=== PATIENT | male | born 1950 | race Caucasian/White ===

== ENCOUNTER 2018-10-13 13:13 | Observation (INO) ==
[2018-10-13] MEDS ORDERED: IOPAMIDOL 100 ML BOTTLE IV ONE (13:14)
[2018-10-13] MEDS ORDERED: ONDANSETRON 4 MG/2 ML VIAL IV ONE (13:47)
[2018-10-13] MEDS ORDERED: 0.9 % SODIUM CHLORIDE 1,000 ML IV ONE (13:47)
[2018-10-13] MEDS ORDERED: HYDROmorphone 2 MG/ML VIAL IM ONE (13:47)
[2018-10-13] MEDS ORDERED: HYDROmorphone 2 MG/ML VIAL IV SCH (14:00)
[2018-10-13] MEDS ORDERED: PROMETHAZINE 25 MG/ML VIAL IV ONE (14:02)
[2018-10-13 14:25] LABS: Basophils # (Auto) 0 K/mcL (0.0-0.3); Basophils % (Auto) 0.4 % (0.0-2.0); Eosinophils # (Auto) 0.3 K/mcL (0.0-0.7); Eosinophils % (Auto) 3.3 % (0.0-7.0); Granulocytes % (Auto) 71.1 % (38.0-78.0); Lymphocytes # (Auto) 1.5 K/mcL (1.5-4.8); Lymphocytes % (Auto) 15.8 % (15.5-49.0); Mean Cell Volume 93.6 fL (80.0-100.0); Mean Corpuscular HGB Conc 33.3 g/dL (31.0-36.0); Mean Corpuscular Hemoglobin 31.2 pg (26.0-34.0); Monocytes # (Auto) 0.9 K/mcL (0.1-0.9); Monocytes % (Auto) 9.4 % (1.0-12.0); Platelet Count 191 K/mcL (140-440); RBC 5.41 M/mcL (4.50-5.90); Red Cell Distribution Width 12.8 % (11.5-14.5)
[2018-10-13 14:51] LABS: ALT/SGPT 31 U/l (0-40); Albumin 4.3 gm/dL (3.2-5.2); Albumin/Globulin Ratio 1.4 (1.0-2.3); Alkaline Phosphatase 87 U/L (39-117); Blood Urea Nitrogen 9 mg/dl (8-23)
--- NOTE | 2018-10-13 15:34 | Ultrasound Report ---
CLINICAL INFORMATION: Abdominal pain and back pain TECHNIQUE: Grayscale and color flow Doppler spectral imaging COMPARISON: None. FINDINGS: Negative gallbladder. No cholelithiasis. No gallbladder wall thickening. No pericholecystic fluid. No dilated bile ducts. Common bile duct measures 5 mm. Liver appears enlarged. Liver measures 20 cm maximally. Liver is echogenic suggesting hepatic steatosis. No focal mass. Liver contour is smooth. No ascites. Visualized portions of the pancreas are echogenic. No discrete mass. No peripancreatic abnormality. Right kidney measures 11.7 x 4.4 x 4.6 cm. No solid or cystic mass. No hydronephrosis. Spleen is not evaluated. Normal hepatopedal portal venous flow. IMPRESSION: 1. Probable hepatic steatosis. No focal intrahepatic abnormality 2. Negative gallbladder Interpreted and Authenticated by: Juan C Ray 10/13/18
--- NOTE | 2018-10-13 15:40 | Emergency Department Note ---
Abdominal Pain HPI - General Chief Complaint: Abdominal Pain Stated Complaint: back pain, abdominal pain Time Seen by Provider: 10/13/18 13:41 Source: patient Mode of arrival: ambulatory Limitations: no limitations - History of Present Illness HPI Narrative: 68-year-old male presents with diffuse abdominal pain and back pain. Describes it as a tight band wrapped around his upper abdomen and back. Onset this morning. Has progressively gotten worse throughout the day and especially worse after eating lunch, states he just had a sandwich for lunch. Positive nausea. No vomiting or diarrhea. No history of anything like this previously. Denies chest pain or shortness of breath. No fever or chills. No cough or cold symptoms. Patient states pain is unbearable so he decided to come in. Improves with: nothing Worsens with: eating Associated symptoms: Reports: nausea. Denies: vomiting, diarrhea - Related Data Home Medications Medication Instructions Recorded Confirmed Fluticasone/Salmeterol [Advair 1 puff INH ONCE 10/13/18 10/13/18 100-50 Diskus] Simvastatin [Zocor] 80 mg PO HS 10/13/18 10/13/18 Allergies Allergy/AdvReac Type Severity Reaction Status Date / Time No Known Drug Allergies Allergy Unverified 10/13/18 13:24 Review of Systems All systems ED: reviewed and negative except as stated. Abdominal Pain PMH - Past Medical History Medical history: Reports: hyperlipidemia, other (Chronic bronchitis which he was started on Advair for as needed but rarely uses it) Surgical history ED: Reports: no surgical history (Denies any surgeries ever) - Social History Smoking status: Never smoker Alcohol use: Reports: Rarely Drug use: Reports: none Physical Exam Limitations: no limitations General appearance: alert, in no apparent distress, other (I initially was not nauseated however started nausea and vomiting multiple times upon exam) Head: atraumatic, normocephalic, normal inspection Eye: Present: normal appearance. Absent: conjunctival injection ENT: normal exam, normal oropharynx, mucous membranes moist, TM's normal bilaterally, normal external ear exam Neck: Present: normal inspection, trachea midline. Absent: tenderness, lymphadenopathy Chest: Present: symmetric chest wall rise Respiratory: Present: normal lung sounds bilaterally. Absent: respiratory distress, rales/crackles, wheezes, accessory muscle use Cardiovascular: Present: regular rate, normal heart sounds Abdominal: Present: soft, distention (Mild diffuse abdominal distention. Also rounded and obese), tenderness (Diffuse upper abdominal tenderness. Slightly worse to the right upper quadrant. Tenderness wraps around from upper abdomen to the back bandlike.), normal bowel sounds. Absent: mass Extremities: Present: normal inspection. Absent: pedal edema Back: Absent: vertebral tenderness Neurological: Present: alert, oriented X3 Psychiatric: Present: normal affect, normal mood Skin: Present: warm, dry, intact, normal color. Absent: rash, cyanosis, diaphoresis, erythema Course Course Narrative: CT scan does show a possible small bowel obstruction. At 1705 I did speak with Dr[address] Issa, the surgeon video control engineer who agrees to admit this patient. We will put him in observation and I will place transition orders. Dr. Issa would like IV fluids, NG if vomiting but if not vomiting no NG as needed, Protonix drip, and upper GI and small bowel follow-through in the morning. This orders were placed. Patient is agreeable to stay. Vital Signs Temperature 97.6 F 10/13/18 13:18 Pulse Rate 62 10/13/18 13:18 Respiratory Rate 25 H 10/13/18 13:18 Blood Pressure 199/88 10/13/18 13:18 Pulse Oximetry (%) 96 10/13/18 13:18 Temperature 97.6 F 10/13/18 13:18 Pulse Rate 65 10/13/18 16:36 Respiratory Rate 16 10/13/18 16:09 Blood Pressure 159/88 10/13/18 16:35 Pulse Oximetry (%) 98 10/13/18 16:36 Abdominal Pain - Lab Data Lab results reviewed: Yes I reviewed the patient's lab results. Result diagrams: 10/13/18 13:36 10/13/18 13:35 Lab Results 10/13/18 10/13/18 10/13/18 Range/Units 13:35 13:35 13:36 WBC 9.7 (4.5-11.0) K/mcL RBC 5.41 (4.50-5.90) M/mcL Hgb 16.9 H (13.5-16.5) g/dL Hct 50.6 (41.0-55.0) % MCV 93.6 (80.0-100.0) fL MCH 31.2 (26.0-34.0) pg MCHC 33.3 (31.0-36.0) g/dL RDW 12.8 (11.5-14.5) % Plt Count 191 (140-440) K/mcL MPV 8.1 (7.4-10.4) fL Gran % 71.1 (38.0-78.0) % Lymph % (Auto) 15.8 (15.5-49.0) % Isabella % (Auto) 9.4 (1.0-12.0) % Eos % (Auto) 3.3 (0.0-7.0) % Baso % (Auto) 0.4 (0.0-2.0) % Gran # 6.9 (1.8-8.0) K/mcL Lymph # (Auto) 1.5 (1.5-4.8) K/mcL Isabella # (Auto) 0.9 (0.1-0.9) K/mcL Eos # (Auto) 0.3 (0.0-0.7) K/mcL Baso # (Auto) 0 (0.0-0.3) K/mcL Sodium 139 (133-145) mmol/L Potassium 3.5 (3.3-5.1) mmol/L Chloride 100 (96-108) mmol/L Carbon Dioxide 24 (22-30) mmol/L Anion Gap 15.0 (8-16) BUN 9 (8-23) mg/dl Creatinine 0.9 (0.7-1.2) mg/dl GFR Calculation 86 Glucose 91 (70-105) mg/dL Calcium 9.2 (8.6-10.4) mg/dl Total Bilirubin 1.0 (0.0-1.0) mg/dL AST 28 (0-37) U/l ALT 31 (0-40) U/l Alkaline Phosphatase 87 (39-117) U/L Troponin T < 0.01 (0-0.03) ng/ml Total Protein 7.4 (5.9-8.4) gm/dL Albumin 4.3 (3.2-5.2) gm/dL Globulin 3.1 (2.2-3.7) gm/dL Albumin/Globulin Ratio 1.4 (1.0-2.3) - Radiology Data Radiology results reviewed: Yes I reviewed the patient's radiology results. Disposition Pt seen by RACKING MACHINE OPERATOR/PA only: Yes Clinical Impression: Small bowel obstruction, Nausea & vomiting, Abdominal pain Disposition: Xfer As Outpt/Obs ([facility]) Condition: Fair Referrals: Diana Orellana ARNP [Primary Care Provider] - Marita Issa MD [Physician] - Time of Disposition: 19:20
--- NOTE | 2018-10-13 16:42 | Cat Scan Report ---
CLINICAL INFORMATION: Nausea and vomiting. Abdominal pain. COMPARISON: None. TECHNIQUE: Axial images were obtained through the abdomen and pelvis. Sagittally and coronally reformatted images. 90 mL contrast material injected intravenously. Oral contrast material was administered FINDINGS: Most of the oral contrast material is in the stomach. Stomach is mildly distended. The jejunum is fluid filled and mildly dilated. Maximal cross-sectional jejunal diameter measures 3.0 cm. Ileum is fluid-filled not significantly dilated. Findings suggest mild or partial mechanical small bowel obstruction. There is no discrete mass. No evidence for closed loop obstruction. I'm not given a history of previous surgery. Clinical correlation and follow-up plain film examination recommended. There is fecal material within the ascending, transverse, and descending colons. Sigmoid colon is collapsed. No free intraperitoneal fluid. No intra-abdominal abscess. No pneumoperitoneum. No biliary or portal venous gas. No pneumatosis. Lung bases are negative.6 no focal consolidation. No parenchymal mass. No pleural fluid. No pericardial fluid. There is coronary artery calcification. No focal intrahepatic mass. Gallbladder is present. No calcified gallstones. No dilated bile ducts. Spleen is negative. No splenomegaly. Normal enhancement of the splenic and portal veins. There is an 11 mm low-density abnormality in the proximal pancreatic body. This is a nonspecific finding. This may be a benign cyst. Follow-up examination recommended in 6 months. No peripancreatic abnormality. No pancreatic duct dilatation. There are bilateral nonobstructing renal calculi. No hydronephrosis. No hydroureter. No bladder calculus. No retroperitoneal lymphadenopathy. No mesenteric adenopathy. No lumbar compression fractures. Sacrum and pelvis are negative. No lytic lesion. No hip fracture. IMPRESSION: 1. Mildly dilated fluid-filled jejunum. Mild or partial mechanical small bowel obstruction suspected. Follow-up plain film studies recommended. 2. Nonobstructing renal calculi bilaterally. No hydronephrosis or hydroureter 3. Low density lesion in the body of the pancreas. 6 month follow-up examination recommended The exam was performed using radiation dose optimization techniques including, but not limited to, automated exposure control, adjustment of the mA and/or kV according to patient size and use of iterative reconstruction technique. Interpreted and Authenticated by: Juan C Ray 10/13/18
[2018-10-13] MEDS ORDERED: HYDROmorphone 2 MG/ML VIAL IV PRN (17:13)
[2018-10-13] MEDS ORDERED: ONDANSETRON 4 MG/2 ML VIAL IV PRN (17:13)
[2018-10-13] MEDS ORDERED: PROMETHAZINE 25 MG/ML VIAL IV PRN (17:13)
[2018-10-13] MEDS: PANTOPRAZOLE 80 MG in 0.9 % SODIUM CHLORIDE 100 ML IV SCH (17:39)
[2018-10-13] MEDS: 0.9 % SODIUM CHLORIDE 1,000 ML IV SCH (19:15)
[2018-10-14] MEDS ORDERED: PANTOPRAZOLE 40 MG VIAL IV ONE (03:14)
[2018-10-14] MEDS: PANTOPRAZOLE 80 MG in 0.9 % SODIUM CHLORIDE 100 ML IV SCH (03:44)
[2018-10-14] MEDS: 0.9 % SODIUM CHLORIDE 1,000 ML IV SCH ×2 (03:44→11:31)
--- NOTE | 2018-10-14 08:07 | XRay Report ---
CLINICAL INFORMATION: Abdominal pain and vomiting. CT scan is consistent with early or partial mechanical small bowel obstruction TECHNIQUE: AP supine and upright abdomen COMPARISON: CT scan dated 10/13/2018. FINDINGS: Water-soluble contrast material was given for previous CT scan. Contrast material is now within the colon. There is persistent gas filled small bowel with dilatation. Small bowel measures approximately 4 cm in cross-sectional diameter. There are air-fluid levels. There is no pneumoperitoneum. No biliary or portal venous gas. No pneumatosis. Appearance remains consistent with partial mechanical small bowel obstruction. This is not a high-grade obstruction as contrast material is present within the colon and 24 hours after ingestion. Continued plain film follow-up recommended. IMPRESSION: 1. Persistent prominent gas-filled small bowel with air-fluid levels. 2. Contrast material within the colon from previous CT scan 3. Findings remain consistent with partial mechanical small bowel obstruction Interpreted and Authenticated by: Juan C Ray 10/14/18
--- NOTE | 2018-10-14 12:36 | General Surg History&Physical ---
History of Present Illness Patient information: Note initiated : 10/14/18 at 12:32 pm Service Date, if different from initiated Date: [] Patient: Alejandro Linder 68 y/o M admitted on 10/13/18 for Back Pain, Abdominal Pain. Chief Complaint: [] HPI: Mr. Linder is a 68 year old M admitted with abdominal pain. The patient states that on 13 October in the morning he developed some mid back pain. His abdomen became progressively more bloated over the day. He developed nausea. He was seen in the emergency room where evaluation revealed dilated duodenum and jejunum. He did not have emesis until after he had received IV Dilaudid. He states that he usually has emesis after narcotics. After the Dilaudid his pain became better.. CT was done and this suggests partial intestinal obstruction. Upper abdominal ultrasound revealed hepatic steatosis but no evidence of biliary tract disease. His labs were unremarkable and he was afebrile. Patient admitted and stated that he has done well since admission. He has not had any abdominal pain and he has not had nausea.. He has had flatus but no bowel movement. Abdominal x-ray this morning shows that the contrast from the CT is now in the colon ruling out high- grade intestinal obstruction. He still has some dilation of the proximal small bowel but this is in a nonobstructive pattern. He was given full liquid diet and has tolerated this well.. Patient is stable and asymptomatic and does not need further diagnostic workup at this time. He is discharged home in satisfactory condition Review of Systems - Constitutional no fatigue, no malaise, no weight gain - EENT Nose, mouth and throat: abnormal hearing, dry mouth, no headache(s), no neck pain, no throat swelling - Cardiovascular no chest pain at rest, no diaphoresis, no irregular heart rhythm, no palpatations, no rapid heart rate, no syncope - Respiratory no cough, no dyspnea on exertion, no wheezing, no snoring, no pain on inspirtation - Gastrointestinal no abdominal pain, no bloating, no nausea, no vomiting - Genitourinary no difficulty urinating, no urinary frequency, no urinary hesitancy - Musculoskeletal back pain, no abnormal gait, no muscle cramps, no myalgias, no numbness - Integumentary other (psoriasis) - Neurological no confusion, no convulsions, no dizziness, no headache(s), no numbness, no tingling, no weakness - Psychiatric no anxiety, no depression, no irritability - Endocrine no fatigue, no palpitations - Hematologic/Lymphatic no easy bleeding, no easy bruising, no lymphadenopathy - Allergic/Immunologic no tongue swelling, no throat swelling, no uticaria, no wheezing, no lip swelling Past History Past medical history: No chronic medical illness Past surgical history: No operative procedures Past social history: Occasional alcohol use Denies tobacco use Denies drug use Medications and Allergies Home Medications Medication Instructions Recorded Confirmed Type Fluticasone/Salmeterol [Advair 1 puff INH ONCE 10/13/18 10/13/18 History 100-50 Diskus] Simvastatin [Zocor] 80 mg PO HS 10/13/18 10/13/18 History Allergies Allergy/AdvReac Type Severity Reaction Status Date / Time No Known Drug Allergies Allergy Unverified 10/13/18 13:24 Exam Temp Pulse Resp BP Pulse Ox 98.2 F 72 18 187/80 94 10/14/18 11:37 10/14/18 11:37 10/14/18 11:37 10/14/18 11:37 10/14/18 11:37 - General physical appearance well developed, well nourished, no distress, no pain, obese - Eyes PERRL, normal ocular movement - ENT normal pinna, normal nares, normal mucosa, no hearing loss, no congestion - Head Head exam IM: Present: atraumatic, normocephalic - Neck no masses, no bruits, trachea midline, no lymphadenopathy, no venous distension - Cardiovascular Cardiovascular exam IM: Present: normal rate and rhythm, RRR, +S1, +S2. Absent : irregular rhythm, JVD, systolic murmur, tachycardia - Respiratory normal expansion, normal respiratory effort, clear to auscultation - Abdomen Abdomen: Present: soft, non tender, bowel sounds, distended Hernia: Present: none - Genitourinary Present: normal penis with no external lesions - Integumentary Present: no rash, no growths, no abnormal pigmentation - Neurologic Present: normal coordination, normal sensation - Musculoskeletal Present: normal gait, normal posture - Psychiatric Present: oriented to time, oriented to person, oriented to place, speech is normal, memory intact Assessment and Plan (1) Abdominal pain not caused by trauma All pain symptoms have resolved Status: Acute (2) Adynamic ileus Patient is now asymptomatic and has no complaints. He is stable for discharge Status: Acute
== END 2018-10-14 13:00 | disposition home or self-care (01) ==
LOC: ED 13:13 → INTOOBSV 19:07 → MEDSUR 19:07
PROVIDERS: ADMIT Family Medicine Adult Medicine; ATTEND Family Medicine Adult Medicine
CPT/HCPCS: 99235